=== PATIENT | female | born 1955 | race Caucasian/White ===

== ENCOUNTER 2019-07-02 14:12 | Emergency (ER) | payer BC ==
[2019-07-02 14:17] VITALS: BP 134/87; PULSE 101; RESP 18; TEMP 98.3
[2019-07-02] MEDS ORDERED: LIDOCAINE 1% INJ 10MG/ML (20 ML MDV) SQ ONE (14:29)
[2019-07-02] MEDS ORDERED: KETOROLAC 30 MG/ML 1 ML VIAL IVP STA (14:29)
--- NOTE | 2019-07-02 14:41 | ED ---
Skin/Abscess/FB HPI - General Chief complaint: Skin/Abscess/Foreign Body Stated complaint: Abscess Time Seen by Provider: 07/02/19 14:22 Source: patient Mode of arrival: ambulatory Limitations: no limitations - History of Present Illness Initial comments: Patient is a 63-year-old female presenting to emergency Department with complaints of an abscess to her chin 3 days. Patient noticed a pimple starting approximately 3 days ago. Since then her chin has become very painful, red and she is starting to experience pain radiating into her right ear. She denies any fever, chills. She is a type II diabetic. She states she's never had an abscess on her face before. She does take chronic pain meds for her neuropathy and did take Lulu this morning without relief of symptoms. She has no other complaints. Upon arrival to the ER, she was slightly tachycardia otherwise normal vitals. - Related Data Previous Rx's Medication Instructions Recorded Hydrocodone/Acetaminophen [Lulu 1 each PO Q4HR PRN #20 tab 07/03/14 5-325] Ketorolac [Toradol] 10 mg PO Q6HR #15 tab 07/03/14 Tamsulosin HCl [Flomax] 0.4 mg PO DAILY #10 cap 07/03/14 Clindamycin HCl 300 mg PO Q6HR 7 Days #28 cap 07/02/19 Allergies Allergy/AdvReac Type Severity Reaction Status Date / Time hydrochlorothiazide Allergy Unknown Verified 07/02/19 14:18 lisinopril Allergy Unknown Verified 07/02/19 14:18 meperidine HCl [From Demerol] AdvReac migraine Verified 07/02/19 14:18 Review of Systems ROS Statement: Those systems with pertinent positive or pertinent negative responses have been documented in the HPI. ROS Other: All systems not noted in ROS Statement are negative. Past Medical History Past Medical History: Hyperlipidemia, Hypertension History of Any Multi-Drug Resistant Organisms: None Reported Past Surgical History: Cholecystectomy, Hysterectomy Past Psychological History: No Psychological Hx Reported Smoking Status: Current every day smoker Past Alcohol Use History: Occasional Past Drug Use History: None Reported General Exam - General Exam Comments Initial Comments: GENERAL: Well-appearing, well-nourished and in no acute distress. HEAD: Atraumatic, normocephalic. EYES: Pupils equal round and reactive to light, extraocular movements intact, sclera anicteric, conjunctiva are normal. ENT: TMs normal, nares patent, oropharynx clear without exudates. Moist mucous membranes. NECK: Normal range of motion, supple without lymphadenopathy or JVD. LUNGS: Breath sounds clear to auscultation bilaterally and equal. No wheezes rales or rhonchi. HEART: Regular rate and rhythm without murmurs, rubs or gallops. ABDOMEN: Soft, nontender, normoactive bowel sounds. No guarding, no rebound. No masses appreciated. : Deferred EXTREMITIES: Normal range of motion, no pitting or edema. No clubbing or cyanosis. NEUROLOGICAL: Cranial nerves II through XII grossly intact. Normal speech, normal gait. PSYCH: Normal mood, normal affect. SKIN: Warm, Dry, normal turgor. There is a very small abscess noted to the chin, with some surrounding erythema and induration. There is some mild swelling to the chin, no extension below the jawline or into the throat. Limitations: no limitations Course Vital Signs 07/02/19 14:15 Temperature 98.3 F Pulse Rate 101 H Respiratory 18 Rate Blood Pressure 134/87 O2 Sat by Pulse 99 Oximetry Procedures - [facility] Protocol (Time Out) Procedure Performed:: I & D Performing Provider: Gemma Abdullahi Nurse: Najma Watson Timeout Date: 07/02/19 Patient Identification (2 identifiers required): Verbal, Arm Band, Name Patient/Legal Quality Improvement Consultant has Confirmed: Identity, Site, Procedure Site: chin Site Marked: Yes Site Verified With Patient/Guardian: Yes Final Confirmation: Procedure, Site, Confirmed w/Provider - Incision & Drainage Consent Obtained: verbal consent Indication: Abscess Site: face (chin) Size (cm): 0 (0.5cm) Anesthetic Used: lidocaine 1% Amount (mLs): 1 I&D Cleaning Method: Alcohol Wipe Sterile Field Used?: Yes Scalpel Used: #11 Needle Aspiration Performed?: No Irrigation Performed?: No I&D Drainage Obtained: Pus, Blood Culture Obtained?: No Patient Tolerated Procedure: well Medical Decision Making - Medical Decision Making Patient is a 63-year-old female here with a small abscess onto her chin 3 days. Vitals are stable, afebrile. An I&D was performed revealing a small amount of pus and blood. The area is very indurated. Blood work reveals mild white leukocytosis. Patient will be started on antibiotics and will use warm compresses to the area. Patient was given Rocephin in the ER before discharge. She is in agreement this plan. She stable for discharge. Return parameters were discussed with the patient she verbalized understanding. Case discussed with Dr. Cornejo. - Lab Data Result diagrams: 07/02/19 14:40 07/02/19 14:40 Lab Results 07/02/19 07/02/19 Range/Units 14:40 14:40 WBC 14.0 H (3.8-10.6) k/uL RBC 5.16 (3.80-5.40) m/uL Hgb 15.9 (11.4-16.0) gm/dL Hct 50.8 H (34.0-46.0) % MCV 98.5 (80.0-100.0) fL MCH 30.8 (25.0-35.0) pg MCHC 31.3 (31.0-37.0) g/dL RDW 13.1 (11.5-15.5) % Plt Count 272 (150-450) k/uL Neutrophils % 75 % Lymphocytes % 18 % Monocytes % 5 % Eosinophils % 1 % Basophils % 0 % Neutrophils # 10.5 H (1.3-7.7) k/uL Lymphocytes # 2.6 (1.0-4.8) k/uL Monocytes # 0.6 (0-1.0) k/uL Eosinophils # 0.2 (0-0.7) k/uL Basophils # 0.1 (0-0.2) k/uL ESR 4 (0-20) mm/hr Sodium 138 (137-145) mmol/L Potassium 4.1 (3.5-5.1) mmol/L Chloride 105 (98-107) mmol/L Carbon Dioxide 21 L (22-30) mmol/L Anion Gap 12 mmol/L BUN 12 (7-17) mg/dL Creatinine 0.54 (0.52-1.04) mg/dL Est GFR (CKD-EPI)AfAm >90 (>60 ml/min/1.73 sqM) Est GFR (CKD-EPI)NonAf >90 (>60 ml/min/1.73 sqM) Glucose 130 H (74-99) mg/dL Calcium 9.0 (8.4-10.2) mg/dL Total Bilirubin 0.7 (0.2-1.3) mg/dL AST 30 (14-36) U/L ALT 30 (4-34) U/L Alkaline Phosphatase 106 (38-126) U/L C-Reactive Protein 17.1 H (<10.0) mg/L Total Protein 7.1 (6.3-8.2) g/dL Albumin 4.2 (3.5-5.0) g/dL Disposition Clinical Impression: Abscess of chin, Cellulitis Disposition: HOME SELF-CARE Condition: Stable Instructions (If sedation given, give patient instructions): Abscess (ED) Additional Instructions: Please return to the Emergency Department if symptoms worsen or any other concerns. Take antibiotic as prescribed. Continue with warm compresses on the chin. Prescriptions: Clindamycin HCl 300 mg PO Q6HR 7 Days #28 cap Is patient prescribed a controlled substance at d/c from ED?: No Referrals: Henry Grayson MD [Primary Care Provider] - 1-2 days
[2019-07-02 15:01] LABS: Basophils # (A) 0.1 k/uL (0-0.2); Basophils % (A) 0 %; Eosinophils # (A) 0.2 k/uL (0-0.7); Eosinophils % (A) 1 %; HCT 50.8 % (34.0-46.0); HGB 15.9 gm/dL (11.4-16.0); Lymphocytes # (A) 2.6 k/uL (1.0-4.8); Lymphocytes % (A) 18 %; MCH 30.8 pg (25.0-35.0); MCHC 31.3 g/dL (31.0-37.0); MCV 98.5 fL (80.0-100.0); Monocytes # (A) 0.6 k/uL (0-1.0); Monocytes % (A) 5 %; Neutrophils # (A) 10.5 k/uL (1.3-7.7); Neutrophils % (A) 75 %; Platelet Count 272 k/uL (150-450); RBC 5.16 m/uL (3.80-5.40); RDW 13.1 % (11.5-15.5)
[2019-07-02 15:17] LABS: ALT 30 U/L (4-34); AST 30 U/L (14-36); African American GFR (CKD) >90 (>60 ml/min/1.73 sqM); Albumin 4.2 g/dL (3.5-5.0); Alkaline Phosphatase 106 U/L (38-126); Anion Gap 12 mmol/L; Blood Urea Nitrogen 12 mg/dL (7-17); C Reactive Protein 17.1 mg/L (<10.0); Carbon Dioxide 21 mmol/L (22-30); Chloride 105 mmol/L (98-107); Glucose 130 mg/dL (74-99); Non-African American GFR(CKD) >90 (>60 ml/min/1.73 sqM); Potassium 4.1 mmol/L (3.5-5.1); Sodium 138 mmol/L (137-145); Total Bilirubin 0.7 mg/dL (0.2-1.3); Total Protein 7.1 g/dL (6.3-8.2)
[2019-07-02 15:39] LABS: Erythrocyte Sedimentation Rate 4 mm/hr (0-20)
[2019-07-02] MEDS ORDERED: cefTRIAXone IN SWFI 1,000 MG/10 ML SYRINGE IVP STA (16:11)
== END 2019-07-02 16:29 | disposition home or self-care (01) ==
LOC: EC 14:12
DX: L02.01 Cutaneous abscess of face (principal); L03.211 Cellulitis of face; I10 Essential (primary) hypertension; E11.40 Type 2 diabetes mellitus with diabetic neuropathy, unspecified; D72.829 Elevated white blood cell count, unspecified; F17.200 Nicotine dependence, unspecified, uncomplicated; Z88.8 Allergy status to other drugs, medicaments and biological substances; Z88.5 Allergy status to narcotic agent
CPT/HCPCS: 10060; 96374; 96375; 36415; 80053; 85652; 85025; 86140; 99283; J2001; J0696; J1885

== ENCOUNTER 2019-07-03 04:09 | Emergency (ER) | payer BC ==
[2019-07-03 04:24] VITALS: TEMP 98.2
[2019-07-03] MEDS ORDERED: MORPHINE SULFATE 4 MG/ML SYRINGE IV STA ×2 (04:53→07:49)
--- NOTE | 2019-07-03 05:22 | ED ---
Skin/Abscess/FB HPI - General Chief complaint: Skin/Abscess/Foreign Body Stated complaint: Abcess/recheck Time Seen by Provider: 07/03/19 04:36 Source: patient, family Mode of arrival: ambulatory Limitations: no limitations - History of Present Illness Initial comments: Patient is a 63-year-old woman presenting here to have reevaluation of facial infection. She indicates that she had developed what she describes as like a pimple in the pre-mental area and that she was seen here and then had this lanced by the physician assistant librarian. She was given antibiotic coverage and went home. She has continued to use warm compress and is not obtaining any drainage. Patient is not having any difficulty with speech, swallowing or with breathing. MD complaint: abscess/boil Onset/Timin -: days(s) Tetanus Up to Date: yes Location: face Severity: moderate Quality: aching Consistency: constant Improves with: none Worsens with: none Associated symptoms: denies other symptoms - Related Data Previous Rx's Medication Instructions Recorded Hydrocodone/Acetaminophen [Cyril 1 each PO Q4HR PRN #20 tab 07/03/14 5-325] Ketorolac [Toradol] 10 mg PO Q6HR #15 tab 07/03/14 Tamsulosin HCl [Flomax] 0.4 mg PO DAILY #10 cap 07/03/14 Clindamycin HCl 300 mg PO Q6HR 7 Days #28 cap 07/02/19 Amoxicillin/Potassium Clav 1 tab PO BID 3 Days #20 tab 07/03/19 [Augmentin 875-125 Tablet] HYDROcodone/APAP 10-325MG [Cyril 1 tab PO Q6HR PRN 3 Days #12 tab 07/03/19 10-325] Allergies Allergy/AdvReac Type Severity Reaction Status Date / Time hydrochlorothiazide Allergy Unknown Verified 07/02/19 14:18 lisinopril Allergy Unknown Verified 07/02/19 14:18 meperidine HCl [From Demerol] AdvReac migraine Verified 07/02/19 14:18 Review of Systems ROS Statement: Those systems with pertinent positive or pertinent negative responses have been documented in the HPI. ROS Other: All systems not noted in ROS Statement are negative. Constitutional: Denies: fever, chills ENT: Denies: throat pain, dental pain Respiratory: Denies: cough, dyspnea Skin: Reports: as per HPI, lesions Neurological: Denies: headache Past Medical History Past Medical History: Hyperlipidemia, Hypertension History of Any Multi-Drug Resistant Organisms: None Reported Past Surgical History: Cholecystectomy, Hysterectomy Past Psychological History: No Psychological Hx Reported Smoking Status: Current every day smoker Past Alcohol Use History: Occasional Past Drug Use History: None Reported General Exam Limitations: no limitations General appearance: alert, in no apparent distress Head exam: Present: atraumatic, normocephalic Eye exam: Present: normal appearance, PERRL, EOMI. Absent: scleral icterus, conjunctival injection ENT exam: Present: normal oropharynx, other (Patient has some pre-mental fullness and tenderness) Neck exam: Present: normal inspection, full ROM. Absent: tenderness, meningismus Respiratory exam: Present: normal lung sounds bilaterally. Absent: respiratory distress, wheezes, rales, rhonchi, stridor Cardiovascular Exam: Present: regular rate, normal rhythm, normal heart sounds. Absent: systolic murmur, diastolic murmur, rubs, gallop Neurological exam: Present: alert, CN II-XII intact Skin exam: Present: warm, dry, erythema. Absent: rash Course Vital Signs 07/03/19 07/03/19 04:20 07:05 Temperature 98.2 F Pulse Rate 106 H 81 Respiratory 18 18 Rate Blood Pressure 134/74 97/71 O2 Sat by Pulse 100 93 L Oximetry Medical Decision Making - Medical Decision Making Patient is 63-year-old woman with complaint of pre-mental swelling, pain, as well as pain along the margin of the mandible on the right. It does appear that she has had increase in cellulitis versus the description of her exam from the prior visit. The computed tomography scan does not show any drainable abscess, nor any evidence of Brian angina. Patient is feeling better following medications here and would prefer to go home. I did offer admission to begin her increased antibiotic coverage, but she would rather go home and she will return if there is any worsening or if she is not having improvement within 12- 24 hours. Disposition Clinical Impression: Cellulitis Disposition: HOME SELF-CARE Condition: Good Instructions (If sedation given, give patient instructions): Cellulitis (ED) Prescriptions: Amoxicillin/Potassium Clav [Augmentin 875-125 Tablet] 1 tab PO BID 3 Days #20 tab HYDROcodone/APAP 10-325MG [Cyril 10-325] 1 tab PO Q6HR PRN 3 Days #12 tab PRN Reason: Pain Is patient prescribed a controlled substance at d/c from ED?: Yes Referrals: Henry Grayson MD [Primary Care Provider] - 1-2 days Michele Mills MD [STAFF PHYSICIAN] - 1-2 days
--- NOTE | 2019-07-03 07:14 | CT ---
EXAMINATION TYPE: CT soft tissue neck w con DATE OF EXAM: 07/03/2019 HISTORY: Abscess submandibular COMPARISON: NONE CT DLP: 249.5 mGycm. Automated Exposure Control for Dose Reduction was Utilized. TECHNIQUE: CT scan of the neck is performed with IV Contrast, patient injected with 100 ml mL of Iso farhana 300, axial images are obtained, coronal and sagittal reformatted images are reviewed. FINDINGS: Airway: The palatine tonsils are enlarged, possibly due to patient body habitus. There is resultant n arrowing of the airway at the level of the uvula and tonsils. Calculi are seen within the left tonsil . Parotid/submandibular glands: There is mild subcutaneous fat stranding overlying the right soft tissu es superficial to the submandibular gland and inferior to the maxilla. There is some thickening of th e platysma muscle on the right particularly on image 40 in comparison to the left. Minimal fat strand ing surrounding the submandibular gland as seen on image 42. Parotid glands are symmetric. No gross e vidence of radiopaque calculi however there is obscuration of portions of the mouth given spray artif act from dental fillings limiting evaluation. No greater than 1 cm short axis local lymph node. Carotid/Vascular Structures: There is a conventional three-vessel branch pattern of the aortic arch. The common carotid arteries, carotid bulbs, and cervical portions of the internal carotid arteries ar e patent without hemodynamically significant stenosis. Vertebral arteries are also patent and codomin ant. Osseous Structures: Straightening of usual cervical lordosis that may relate to patient positioning o r muscular strain/thousand. Probable bone island of the C4 spinous process. Mild multilevel degenerat perla change of the cervical spine. Incidentally noted joni bullosa. Other: Mild centrilobular emphysematous changes in the lung apices. IMPRESSION: Findings suggesting sialoadenitis of the right submandibular gland and cellulitis. No wel l-formed abscess. Only minimal amount of fat stranding is seen directly adjacent to the submandibular gland. Cardia fat stranding is superficial presumably from cellulitis.
[2019-07-03] MEDS ORDERED: AMPICILLIN-SULBACTAM 3 GM in SODIUM CHLORIDE 0.9% 100 ML IVPB STA (07:50)
[2019-07-03 09:13] VITALS: BP 115/66; PULSE 78; RESP 20
== END 2019-07-03 09:15 | disposition home or self-care (01) ==
LOC: EC 04:09
DX: L03.211 Cellulitis of face (principal); F17.200 Nicotine dependence, unspecified, uncomplicated; Z88.8 Allergy status to other drugs, medicaments and biological substances; Z88.5 Allergy status to narcotic agent
CPT/HCPCS: 70491; 99284; 96365; 96375; 96376; J2270; J0295; Q9967

== ENCOUNTER → 2020-03-13 | Outpatient (CLI) | payer BC ==
--- NOTE | 2020-03-14 13:45 | MM ---
Reason for exam: screening (asymptomatic). Last mammogram was performed 3 years and 4 months ago. History: Patient is postmenopausal and has history of colon cancer at age 59. Benign left mammotome panel of the left breast, September 30, 2007. Benign excisional biopsy of the left breast, 1971. Lumpectomy of the left breast. Physical Findings: A clinical breast exam by your physician is recommended on an annual basis and results should be correlated with mammographic findings. MG Screening Mammo w CAD Bilateral CC, MLO, and XCCL view(s) were taken. Prior study comparison: November 19, 2016, bilateral MG screening mammo w CAD. January 31, 2014, bilateral MG screening mammo w CAD. There are scattered fibroglandular densities. There are benign appearing round calcifications bilaterally. Previous mammotome biopsy in the left breast. There is no discrete abnormality. ASSESSMENT: Benign, BI-RAD 2 RECOMMENDATION: Routine screening mammogram of both breasts in 1 year.
== END | disposition home or self-care (01) ==
LOC: RADMAMWWP 16:34
PROVIDERS: ATTEND Family Medicine
DX: Z12.39 Encounter for other screening for malignant neoplasm of breast (principal)
CPT/HCPCS: 77067

== ENCOUNTER → 2021-08-11 | Outpatient (CLI) | payer MEDICARE, OTHER ==
--- NOTE | 2021-08-13 09:02 | MM ---
Reason for Exam: Screening (asymptomatic). Last mammogram was performed 1 year(s) and 5 month(s) ago. Patient History: Menarche at age 13. First Full-Term at age 19. Left ovary removed at age 25. Right ovary removed at age 25. Hysterectomy at age 25. Postmenopausal. Colorectal cancer, age 59. 1971, Benign Excisional Biopsy on the left side. Lumpectomy on the Left side. 09/30/2007, Benign Core Biopsy on the left side. Risk Values: Rayna 5 year model risk: 1.8%. NCI Lifetime model risk: 6.8%. Prior Study Comparison: 01/31/2014 Bilateral Screening Mammogram, [facility]. 11/19/2016 Bilateral Screening Mammogram, [facility]. 03/13/2020 Bilateral Screening Mammogram, [facility]. Tissue Density: There are scattered fibroglandular densities. Findings: Analyzed By CAD. Mammotome biopsy clip left breast. There is no suspicious group of microcalcifications or new suspicious mass in either breast. Overall Assessment: Benign, BI-RAD 2 Management: Screening Mammogram of both breasts in 1 year. A clinical breast exam by your physician is recommended on an annual basis and results should be correlated with mammographic findings. Electronically signed and approved by: Rob Raman M.D.
== END | disposition home or self-care (01) ==
LOC: RADMAMWWP 11:20
PROVIDERS: ATTEND Family Medicine
DX: Z12.31 Encounter for screening mammogram for malignant neoplasm of breast (principal); Z78.0 Asymptomatic menopausal state
CPT/HCPCS: 77063; 77067

== ENCOUNTER → 2023-10-08 | Outpatient (CLI) | payer MEDICARE, OTHER ==
--- NOTE | 2023-10-28 10:31 | MM ---
Reason for Exam: Screening (asymptomatic). Last mammogram was performed 2 year(s) and 2 month(s) ago. Patient History: Menarche at age 13. First Full-Term at age 19. Left ovary removed at age 25. Right ovary removed at age 25. Hysterectomy at age 25. Postmenopausal. Colorectal cancer, age 59. 1971, Benign Excisional Biopsy on the left side. Lumpectomy on the Left side. 09/30/2007, Benign Core Biopsy on the left side. Risk Values: Rayna 5 year model risk: 1.8%. NCI Lifetime model risk: 6.0%. Prior Study Comparison: 11/19/2016 Bilateral Screening Mammogram, [facility]. 03/13/2020 Bilateral Screening Mammogram, [facility]. 08/11/2021 Bilateral MG 3D screening mammo w/cad, [facility]. Tissue Density: The breasts are almost entirely fatty. Findings: Analyzed By CAD. Right breast: There is no suspicious group of microcalcifications or new suspicious mass. Left breast: There is no suspicious group of microcalcifications or new suspicious mass. Overall Assessment: Negative, BI-RAD 1 Management: Screening Mammogram of both breasts in [address] [facility] will attempt to contact patient to return for supplemental views and ultrasound if indicated. Patient should continue monthly self-breast exams. A clinical breast exam by your physician is recommended on an annual basis. This exam should not preclude additional follow-up of suspicious palpable abnormalities. Note on Rayna scores and lifetime risk: 1. A Rayna score greater than 3% is considered moderate risk. If this is the case, consider specialist referral to assess eligibility for a risk reducing agent. 2. If overall lifetime risk for the development of breast cancer is 20% or higher, the patient may qualify for future screening with alternating mammogram and breast MRI. Electronically signed and approved by: Vick Hernandez DO
== END | disposition home or self-care (01) ==
LOC: RADMAMWWP 12:00
PROVIDERS: ATTEND Family Medicine
DX: Z12.31 Encounter for screening mammogram for malignant neoplasm of breast (principal); Z78.0 Asymptomatic menopausal state; R92.313 Mammographic fatty tissue density, bilateral breasts; Z90.721 Acquired absence of ovaries, unilateral
CPT/HCPCS: 77063; 77067